=== PATIENT | female | born 1930 | race Caucasian/White ===

== ENCOUNTER → 2016-12-29 | Outpatient (CLI) | payer OTHER ==
[~2016-12-29] MED LIST: ANASTROZOLE1 MG PO; ASPIR 8181 MG PO; BENICAR20 MG PO; CALCIUM OYSTER500 MG PO; CALCIUM500 MG PO; CARBAMAZEPINE200 M2 PO; CENTRUM SILVER1 EAC2 PO; D3 DOTS2000 UNIT PO; DETROL LA2 MG PO; FISH OIL 1,0001 EAC5 PO; FISH OIL 1,001000 M2 PO; FOSAMAX 70 MG T70 MG PO; GLUCOSAMINE &1 EAC1 PO; LOPRESSOR 12.12.5 MG PO; LOPRESSOR25 PO; MULTIVITAMINS1 EAC7 PO; NAPROSYN250 MG PO; SAVAYSA30 MG PO; SIMVASTATIN40 MG PO
== END ==
LOC: RAD 01:03
DX: Z12.31 Encounter for screening mammogram for malignant neoplasm of breast (principal)

== ENCOUNTER → 2018-01-05 | Outpatient (CLI) | payer OTHER | LOC: RAD 01:51 | DX: Z12.31 Encounter for screening mammogram for malignant neoplasm of breast (principal) ==